=== PATIENT | female | born 1975 | race Hispanic/Latino ===

== ENCOUNTER 2020-08-24 17:51 | Emergency (ER) | payer BC ==
[2020-08-24] MEDS ORDERED: ALBUTEROL INHALER 90MCG/INH IH ONE (18:30)
[2020-08-24] MEDS ORDERED: DEXAMETHASONE SOD PHOSPHATE 10MG/ML 1ML VIAL ONE (18:31)
[2020-08-24] MEDS ORDERED: 0.9%NACL 1000ML 2,000 ML IV ONE (18:31)
[2020-08-24] MEDS ORDERED: ASPIRIN 325 MG TABLET ONE (18:31)
[2020-08-24] MEDS ORDERED: ACETAMINOPHEN WITH CODEINE 1 TAB TAB ONE (18:32)
[2020-08-24 18:45] LABS: ABG BASE EXCESS 0.4 mmol/L (-2.0-3.0); ABG HCO3 23.6 mmol/L (21.0-28.0); ABG OXYGEN SATURATION 96.1 % (95.0-99.0); ABG PCO2 34 mmHg (32-45)
[2020-08-24 19:15] LABS: BASOPHILS % (AUTO) 0.2 % (0.0-5.0); HEMATOCRIT 40.1 % (36-48); LYMPHOCYTES % (AUTO) 16.1 % (21.0-51.0); MEAN CORPUSCULAR HEMOGLOBIN 30.4 pg (27.0-33.0); MEAN CORPUSCULAR HGB CONC 33.2 g/dL (32.0-36.0); MEAN CORPUSCULAR VOLUME 91.6 fL (79-99); MONOCYTES % (AUTO) 4.8 % (3.0-13.0); NEUTROPHILS % (AUTO) 78.1 % (40.0-77.0); PLATELET COUNT (AUTO) 179 K/uL (130-400); RED BLOOD CELL COUNT(AUTO) 4.38 MIL/uL (4.00-5.50); RED CELL DISTRIBUTION WIDTH 13.2 % (11.0-15.5); WHITE BLOOD COUNT (AUTO) 8.9 K/uL (4.8-10.8)
[2020-08-24 19:24] LABS: CREATININE 0.7 mg/dL (0.5-1.5); POTASSIUM 3.6 mmol/L (3.5-5.1)
[2020-08-24 19:34] LABS: BILIRUBIN,TOTAL 0.5 mg/dL (0.2-1.0); TOTAL PROTEIN, SERUM 6.8 g/dL (6.0-8.3)
[2020-08-24 19:43] LABS: INR 0.97 (0.85-1.15); PROTHROMBIN TIME 10.4 SEC (9.6-11.6)
[2020-08-24 19:44] LABS: PARTIAL THROMBOPLASTIN TIME 23.9 SEC (26.3-35.5)
[2020-08-24 19:54] LABS: B-TYPE NATRIURETIC PEPTIDE 31 pg/mL (0-100)
[2020-08-24] MEDS ORDERED: AZITHROMYCIN 250 MG TABLET PO ONE (20:13)
[2020-08-24] MEDS ORDERED: CEFTRIAXONE 1G VIAL ONE (20:13)
== END 2020-08-24 20:43 | disposition home or self-care (01) ==
LOC: EDH 17:51
DX: U07.1 COVID-19 (principal); J12.9 Viral pneumonia, unspecified; R06.02 Shortness of breath
CPT/HCPCS: 36415; 36600; 71045; 80053; 82550; 82803; 83605; 83880; 84145; 84484; 84702; 85025; 85610; 85730; 87040 ×2; 87426; 87804 ×2; 87880; 93005; 96361; 96365; 96375; 99285; J0696; J1100; J7030; U0003